=== PATIENT | male | born 1965 | race African-American/Black ===

== ENCOUNTER 2024-03-27 19:14 | Emergency (ER) | payer MEDICAID, OTHER ==
[~2024-03-27] VITALS: Ht 188 cm; Wt 142.0 kg
[2024-03-27 19:20] VITALS: O2SAT 97
[2024-03-27] MEDS ORDERED: AMOX1TAB16 MT (20:38)
[2024-03-27] MEDS ORDERED: NAPR-1176 MT (20:39)
[2024-03-27 20:45] VITALS: TEMP 98.7
[2024-03-27 20:48] VITALS: BP 163/110; PULSE 70; RESP 22
[2024-03-27] MEDS: KETOROLAC 15MG/ML VIAL IM ONE (20:48)
== END 2024-03-27 20:54 | disposition home or self-care (01) ==
LOC: ER 19:14
DX: K04.7 Periapical abscess without sinus (principal); E78.00 Pure hypercholesterolemia, unspecified
CPT/HCPCS: 99283; 96372; J1885

== ENCOUNTER 2025-09-22 14:28 | Emergency (ER) | payer MEDICAID ==
[~2025-09-22] VITALS: Ht 188 cm; Wt 147.0 kg
[~2025-09-22 14:28] MED LIST: AMOX1TAB16 MT; NAPR-1176 MT
[2025-09-22 14:45] VITALS: O2SAT 95
[2025-09-22] MEDS ORDERED: POLY17PO3 MT (19:35)
[2025-09-22] MEDS ORDERED: IBUP-2030 MT (19:35)
[2025-09-22] MEDS ORDERED: HYDR25SU37 RC (19:35)
[2025-09-22] MEDS ORDERED: HYDR30CR80 TP (19:35)
[2025-09-22] MEDS: HYDROCODONE/ACETAMINOPHEN 5/325MG TABLET PO ONE (19:52)
[2025-09-22] MEDS: IBUPROFEN 800MG TABLET PO ONE (19:53)
[2025-09-22] MEDS: POLYETHYLENE GLYCOL 3350 (17GM) 1 DOSE PACK PO ONE (19:53)
[2025-09-22] MEDS: CLONIDINE 0.1MG TABLET PO NR (20:14)
[2025-09-22] MEDS ORDERED: CLONIDINE 0.2MG TABLET PO ONE (20:15)
[2025-09-22 20:33] VITALS: BP 168/106; PULSE 78; RESP 14; TEMP 36.8; O2SAT 97
== END 2025-09-22 20:35 | disposition home or self-care (01) ==
LOC: ER 14:28
DX: K64.4 Residual hemorrhoidal skin tags (principal); I10 Essential (primary) hypertension; E78.00 Pure hypercholesterolemia, unspecified; Z79.1 Long term (current) use of non-steroidal anti-inflammatories (NSAID); Z87.19 Personal history of other diseases of the digestive system
CPT/HCPCS: 99285; Z7610